=== PATIENT | female | born 1990 ===

== ENCOUNTER 2016-11-06 11:23 | Emergency (ER) | payer OTHER ==
[2016-11-06] MEDS ORDERED: Sodium Chloride 0.9% 1,000 ML IV ONE (11:34)
[2016-11-06] MEDS ORDERED: Iohexol 240 (50 ml) PO ONE (11:58)
[2016-11-06 12:00] LABS: BASO # 0.1 K/uL (0.0-0.2); BASO % 1.1 % (0.0-2.0); EOS # 0.2 K/uL (0.0-0.7); EOS % 3.3 % (0.0-4.0); HEMOGLOBIN 13.5 g/dL (11.0-16.0); LYMPH # 1.9 K/uL (1.0-4.3); LYMPH % 31.1 % (20.0-40.0); MEAN CELL VOLUME 90.6 fL (81.0-99.0); MEAN CORPUSCULAR HEMOGLOBIN 29.9 pg (27.0-31.0); MEAN PLATELET VOLUME 10.8 fL (7.2-11.7); MONO # 0.5 K/uL (0.0-0.8); MONO % 8.4 % (0.0-10.0); NEUT # 3.5 K/uL (1.8-7.0); NEUT % 56.1 % (50.0-75.0); NRBC % 0.1 % (0.0-2.0); RBC 4.5 Mil/uL (3.80-5.20); RED CELL DISTRIBUTION WIDTH 13.2 % (11.5-14.5); WHITE BLOOD COUNT 6.2 K/uL (4.8-10.8)
[2016-11-06 12:07] LABS: ALBUMIN 4.5 g/dL (3.5-5.0)
[2016-11-06] MEDS ORDERED: Iohexol 240 (50 ml) ONE (12:08)
[2016-11-06 12:10] LABS: ALB/GLOB RATIO 1.5 (1.0-2.1); ALT/SGPT 22 U/L (9-52); AST/SGOT 26 U/L (14-36); BLOOD UREA NITROGEN 23 mg/dL (7-17); GFR AFRICAN-AMERICAN > 60; GFR NON-AFRICAN AMERICAN > 60; HCG,QUALITATIVE URINE NEGATIVE (NEGATIVE)
[2016-11-06 12:11] LABS: CALCIUM 9.2 mg/dl (8.6-10.4); LIPASE 31 U/L (23-300)
--- NOTE | 2016-11-06 12:14 | C.PDOC ---
History Of Present Illness 26 yr old female presents to the ER with complaints of left sided abdominal pain on and off for the past 3 years. Patient states she was seen by her GYN6 months ago, had a transvaginal ultrasound and was negative for pathology. Patient states she is constipated. Denies fever, nausea, vomiting, blood in stool, dysuria, hematuria or back pain. Time Seen by Provider: 11/06/16 11:33 Chief Complaint (Nursing): Abdominal Pain History Per: Patient History/Exam Limitations: no limitations Onset/Duration Of Symptoms: Intermittent Episodes (3 years ) Current Symptoms Are (Timing): Still Present Location Of Pain/Discomfort: LUQ, LLQ Radiation Of Pain To:: None Past Medical History Reviewed: Historical Data, Nursing Documentation, Vital Signs Vital Signs: Last Vital Signs Temp 98.5 F 11/06/16 14:46 Pulse 61 11/06/16 14:46 Resp 18 11/06/16 14:46 BP 109/68 11/06/16 14:46 Pulse Ox 99 11/06/16 14:46 - Medical History PMH: Asthma - [facility] Procedures REMOVAL FB FROM HAND (09/18/13) Family History: States: No Known Family Hx - Social History Hx Tobacco Use: Yes Hx Alcohol Use: No Hx Substance Use: No - Immunization History Hx Tetanus Toxoid Vaccination: No Hx Influenza Vaccination: Yes Hx Pneumococcal Vaccination: No Review Of Systems Except As Marked, All Systems Reviewed And Found Negative. Constitutional: Negative for: Fever Gastrointestinal: Positive for: Abdominal Pain (Left sided ), Constipation. Negative for: Nausea, Vomiting Genitourinary: Negative for: Dysuria, Hematuria Musculoskeletal: Negative for: Back Pain Physical Exam - Physical Exam Appears: Non-toxic, No Acute Distress Skin: Warm, Dry, No Rash Head: Atraumatic, Normacephalic Oral Mucosa: Moist Chest: Symmetrical, No Tenderness Cardiovascular: Rhythm Regular, No Murmur Respiratory: Normal Breath Sounds, No Rales, No Rhonchi, No Stridor, No Wheezing Gastrointestinal/Abdominal: Bowel Sounds (Hyperactive ), Soft, Tenderness (Mild left abdominal tendenress. ), No Guarding, No Rebound Back: Normal Inspection, No CVA Tenderness Extremity: Normal ROM, No Swelling Neurological/Psych: Oriented x3, Normal Speech, Normal Motor ED Course And Treatment - Laboratory Results Result Diagrams: 11/06/16 11:54 11/06/16 11:54 O2 Sat by Pulse Oximetry: 100 (RA ) Pulse Ox Interpretation: Normal - CT Scan/US CT - Abdomen & Pelvis Other Rad Studies (CT/US): Read By Radiologist, Radiology Report Reviewed CT/US Interpretation: PROCEDURE: CT Abdomen and Pelvis with contrast. HISTORY : left-mid abdominal pain. COMPARISON: None. TECHNIQUE: Multiple contiguous axial images were performed through the abdomen and pelvis with the use of intravenous contrast. Subsequently, sagittal and coronal reformatted images were obtained. Radiation dose: Total exam DLP = 250 mGy-cm. This CT exam was performed using one or more of the following dose reduction techniques : Automated exposure control, adjustment of the mA and/or kV according to patient size, and/or use of iterative reconstruction technique. FINDINGS: LOWER THORAX: Unremarkable. LIVER: Mild fatty infiltration of the liver. Suggestion of some focal fatty sparing adjacent to the ligamentum teres medial right hepatic lobe on series 3, image 45. GALLBLADDER AND BILE DUCTS: Unremarkable. PANCREAS: Unremarkable. No gross lesion or ductal dilatation. SPLEEN: Unremarkable. ADRENALS: Unremarkable. No mass. KIDNEYS AND URETERS: Moderate left hydroureteronephrosis with an obstructing 9 millimeter calculus in the proximal left ureter. Additional hydroureter throughout the course of the left ureter more distally. VASCULATURE: Unremarkable. No aortic aneurysm. BOWEL: Mild reactive thickening of the sigmoid colon. Adjacent free fluid in the pelvis. Underdistention and or mild thickening of the mid descending colon. Fecal retention in the colon. APPENDIX: Contrast filled. Minimal prominence at the level of the mid appendix, nonspecific. PERITONEUM: Unremarkable. No free fluid. No free air. LYMPH NODES: Unremarkable. No enlarged lymph nodes. BLADDER: Unremarkable. REPRODUCTIVE: Heterogeneous uterus and bilateral adnexa. Prominent probable ovarian tissue in the midline pelvis measuring 3.8 centimeters. Additional probable ovarian tissue seen more laterally to the left measuring 3.8 centimeters with enhancing cyst internally measuring 1.8 centimeters. Small amount of free fluid in the pelvic cul-de-sac. BONES: Small bone island in the left proximal femur. Degenerative changes in the spine with minimal retrolisthesis of L5 on S1. OTHER FINDINGS: None. IMPRESSION: Moderate left hydroureteronephrosis with an obstructing 9 millimeter calculus in the proximal left ureter. Additional hydroureter throughout the course of the left ureter more distally. Additional findings as above. Medical Decision Making Medical Decision Making: PLAN: * CT - Abdomen & Pelvis * CBC * MP * HCG * Urinalysis * Toradol IVP * Sodium Chloride IV Disposition - Disposition Referrals: Nicole Chnug MD [Staff Provider] - Disposition: HOME/ ROUTINE Disposition Time: 15:15 Condition: IMPROVED Additional Instructions: Thank you for letting us take care of you today. Your provider was Dr. Zacarias. You were treated for a kidney stone. The emergency medical care you received today was directed at your acute symptoms. If you were prescribed any medication, please fill it and take as directed. It may take several days for your symptoms to resolve. Return to the Emergency Department if your symptoms worsen, do not improve, or if you have any other problems. Please contact your doctor or call one of the physicians/clinics you have been referred to that are listed on the Patient Visit Information form that is included in your discharge packet. Bring any paperwork you were given at discharge with you along with any medications you are taking to your follow up visit. Our treatment cannot replace ongoing medical care by a primary care provider (PCP) outside of the emergency department. Thank you for allowing the [facility] team to be part of your care today. Follow up with Dr. Mays in 2 days for further treatment of your kidney stone. Prescriptions: Ibuprofen [Motrin] 600 mg PO Q6 PRN #20 tab PRN Reason: Pain, Moderate (4-7) Instructions: Kidney Stones (ED) Forms: [employer] (Setswana), Work Excuse - Clinical Impression Clinical Impression: Nephrolithiasis - Scribe Statement The provider has reviewed the documentation as recorded by the Jordanibe Teresa Herman Provider Attestation: All medical record entries made by the Jordanibe were at my direction and personally dictated by me. I have reviewed the chart and agree that the record accurately reflects my personal performance of the history, physical exam, medical decision making, and the department course for this patient. I have also personally directed, reviewed, and agree with the discharge instructions and disposition.
[2016-11-06 12:18] LABS: SQUAMOUS EPITHIAL 6 /hpf (0-5); URINE BILIRUBIN NEGATIVE (NEGATIVE); URINE BLOOD NEGATIVE (NEGATIVE); URINE CLARITY Clear (Clear); URINE COLOR Yellow (YELLOW); URINE GLUCOSE (UA) NORMAL (Normal); URINE LEUKOCYTE ESTERASE TRACE Leu/uL (Negative); URINE NITRATE NEGATIVE (NEGATIVE); URINE PROTEIN NEGATIVE (NEGATIVE); URINE UROBILINOGEN NORMAL mg/dL (0.2-1.0)
[2016-11-06] MEDS ORDERED: Iodixanol 320 MG/ML 100 ML BOTTLE IV ONE (13:32)
--- NOTE | 2016-11-06 14:26 | CT ---
PROCEDURE: CT Abdomen and Pelvis with contrast HISTORY: left-mid abdominal pain COMPARISON: None. TECHNIQUE: Multiple contiguous axial images were performed through the abdomen and pelvis with the use of intravenous contrast. Subsequently, sagittal and coronal reformatted images were obtained. Radiation dose: Total exam DLP = 250 mGy-cm. This CT exam was performed using one or more of the following dose reduction techniques: Automated exposure control, adjustment of the mA and/or kV according to patient size, and/or use of iterative reconstruction technique. FINDINGS: LOWER THORAX: Unremarkable. LIVER: Mild fatty infiltration of the liver. Suggestion of some focal fatty sparing adjacent to the ligamentum teres medial right hepatic lobe on series 3, image 45. GALLBLADDER AND BILE DUCTS: Unremarkable. PANCREAS: Unremarkable. No gross lesion or ductal dilatation. SPLEEN: Unremarkable. ADRENALS: Unremarkable. No mass. KIDNEYS AND URETERS: Moderate left hydroureteronephrosis with an obstructing 9 millimeter calculus in the proximal left ureter. Additional hydroureter throughout the course of the left ureter more distally. VASCULATURE: Unremarkable. No aortic aneurysm. BOWEL: Mild reactive thickening of the sigmoid colon. Adjacent free fluid in the pelvis. Underdistention and or mild thickening of the mid descending colon. Fecal retention in the colon. APPENDIX: Contrast filled. Minimal prominence at the level of the mid appendix, nonspecific. PERITONEUM: Unremarkable. No free fluid. No free air. LYMPH NODES: Unremarkable. No enlarged lymph nodes. BLADDER: Unremarkable. REPRODUCTIVE: Heterogeneous uterus and bilateral adnexa. Prominent probable ovarian tissue in the midline pelvis measuring 3.8 centimeters. Additional probable ovarian tissue seen more laterally to the left measuring 3.8 centimeters with enhancing cyst internally measuring 1.8 centimeters. Small amount of free fluid in the pelvic cul-de-sac. BONES: Small bone island in the left proximal femur. Degenerative changes in the spine with minimal retrolisthesis of L5 on S1. OTHER FINDINGS: None. IMPRESSION: Moderate left hydroureteronephrosis with an obstructing 9 millimeter calculus in the proximal left ureter. Additional hydroureter throughout the course of the left ureter more distally. Additional findings as above.
[2016-11-06 14:46] VITALS: BP 109/68; PULSE 61; RESP 18; TEMP 98.5
[2016-11-06 18:31] VITALS: O2SAT 100
== END 2016-11-06 16:11 | disposition home or self-care (01) ==
LOC: C.ER 11:23
DX: N20.0 Calculus of kidney (principal)
CPT/HCPCS: 74177; 80053; 81001; 83690; 84703; 85025; 87086; 96374; 99285; J1885; J7040; Q9966; Q9967

== ENCOUNTER 2016-11-08 08:30 | Day surgery (SDC) | payer OTHER ==
[2016-11-08 09:28] LABS: HCG,QUALITATIVE URINE NEGATIVE (NEGATIVE)
[2016-11-08] MEDS ORDERED: Lidocaine 2% Jelly (Uro-Jet) ONE ×2 (09:34→10:16)
[2016-11-08] MEDS ORDERED: Iohexol 240 (50 ml) ONE (09:34)
--- NOTE | 2016-11-08 09:35 | C.PDOC ---
History Of Present Illness 26 yr old female with history of kidney stone on the left, presents to the ER, referred by Dr. Nicole Medina for renal colic and to OR for stent placement. Patient reports the pain is mainly on the left side and is 8/10. Denies fever, chest pain, SOB, nausea, vomiting, dysuria, headache, weakness or numbness. Time Seen by Provider: 11/08/16 08:59 Chief Complaint (Nursing): Female Genitourinary History Per: Patient History/Exam Limitations: no limitations Onset/Duration Of Symptoms: Days Current Symptoms Are (Timing): Still Present Pain Scale Rating Of: 8 Past Medical History Reviewed: Historical Data, Nursing Documentation, Vital Signs Vital Signs: Last Vital Signs Temp 98.2 F 11/08/16 08:40 Pulse 66 11/08/16 08:40 Resp 20 11/08/16 08:40 BP 117/70 11/08/16 08:40 Pulse Ox 99 11/08/16 09:35 - Medical History PMH: Asthma, Kidney Stones, Chronic Kidney Disease - [facility] Procedures REMOVAL FB FROM HAND (09/18/13) Family History: States: No Known Family Hx - Social History Hx Tobacco Use: Yes Hx Alcohol Use: Yes Hx Substance Use: No - Immunization History Hx Tetanus Toxoid Vaccination: No Hx Influenza Vaccination: Yes Hx Pneumococcal Vaccination: No Review Of Systems Except As Marked, All Systems Reviewed And Found Negative. Constitutional: Negative for: Fever Cardiovascular: Negative for: Chest Pain Respiratory: Negative for: Shortness of Breath Gastrointestinal: Positive for: Abdominal Pain (Left lower ). Negative for: Nausea, Vomiting Genitourinary: Negative for: Dysuria Neurological: Negative for: Weakness, Numbness, Headache Physical Exam - Physical Exam Appears: Non-toxic, No Acute Distress Skin: Warm, Dry, No Rash Head: Atraumatic, Normacephalic Chest: Symmetrical, No Tenderness Cardiovascular: Rhythm Regular, No Murmur Respiratory: Normal Breath Sounds, No Rales, No Rhonchi, No Stridor, No Wheezing Gastrointestinal/Abdominal: Soft, Tenderness (Mild LLQ tenderness), No Guarding , No Rebound Back: CVA Tenderness (Mild left CVA tenderness) Extremity: Normal ROM, No Swelling Neurological/Psych: Oriented x3, Normal Speech, Normal Motor, Normal Sensation ED Course And Treatment O2 Sat by Pulse Oximetry: 99 (RA) Pulse Ox Interpretation: Normal Medical Decision Making Medical Decision Making: PLAN: * HCG * Urinalysis Disposition Doctor Will See Patient In The: Hospital - Disposition Disposition: HOSPITALIZED Disposition Time: 09:34 Forms: Backpack (Italian) - Clinical Impression Clinical Impression: Renal colic on right side - Scribe Statement The provider has reviewed the documentation as recorded by the Jordanibe Teresa Herman Provider Attestation: All medical record entries made by the Jordanibe were at my direction and personally dictated by me. I have reviewed the chart and agree that the record accurately reflects my personal performance of the history, physical exam, medical decision making, and the department course for this patient. I have also personally directed, reviewed, and agree with the discharge instructions and disposition. Decision To Admit - Pt Status Changed To: Hospital Disposition Of: SDS- Endo,OR,Cath,IR - InPatient: Physician Admission Certification: I certify that this patient requires 2 or more midnights of care for the following reason:: patient needs intervention - . Bed Request Type: Same Day Surgery Admitting Physician: Nicole Chung Patient Diagnosis: Renal colic on right side
[2016-11-08 09:38] LABS: SQUAMOUS EPITHIAL 5 /hpf (0-5); URINE BILIRUBIN NEGATIVE (NEGATIVE); URINE BLOOD 1+ (NEGATIVE); URINE CLARITY Clear (Clear); URINE COLOR Yellow (YELLOW); URINE GLUCOSE (UA) NORMAL (Normal); URINE LEUKOCYTE ESTERASE TRACE Leu/uL (Negative); URINE NITRATE NEGATIVE (NEGATIVE); URINE PROTEIN NEGATIVE (NEGATIVE); URINE UROBILINOGEN NORMAL mg/dL (0.2-1.0)
[2016-11-08] MEDS ORDERED: Lactated Ringer's 500 ML IV ONE ×2 (09:38)
[2016-11-08] MEDS: cefTRIAXone IV 1 gm in Dextros 50 ML IVPB ONE ×2 (09:39→09:55)
[2016-11-08] MEDS ORDERED: Midazolam 2 MG/2 ML VIAL ONE (09:56)
[2016-11-08] MEDS ORDERED: Propofol 10 mg/ml Inj (20 ML) ONE (09:57)
[2016-11-08] MEDS ORDERED: Lidocaine Hydrochloride 5 ML INJ ONE (10:01)
[2016-11-08] MEDS: HYDROmorphone 0.5 mg/0.5 ml ISec IVP PRN ×3 (10:44→11:45)
--- NOTE | 2016-11-08 10:45 | PCM.SURG1 ---
Surgeon's Initial Post Op Note - Surgeon's Notes Surgeon: heriberto denise Chief Technology Officer: none Type of Anesthesia: IV Sedation Pre-Operative Diagnosis: renal colic, L. L ureteral calculus Operative Findings: same. L hydronephrosis Post-Operative Diagnosis: same Operation Performed: cystoscopy, L rtg pyelogram. L ureteral stone manipulation. insertion of L ureteral stent. EUA Specimen/Specimens Removed: urine Estimated Blood Loss: EBL {In ML}: 0 Blood Products Given: N/A Post-Op Condition: Good Date of Surgery/Procedure: 11/08/16 Time of Surgery/Procedure: 10:35
[2016-11-08] MEDS ORDERED: Lactated Ringer's 1,000 ML IV ONE (11:50)
--- NOTE | 2016-11-08 12:11 | RAD ---
HISTORY: LEFT HYDRONEPHROSIS/LT URETERAL STONE COMPARISON: 11/06/2016. CT abdomen and pelvis. FINDINGS: BOWEL: Normal. No obstruction. No free air. Oral contrast from recent CT scan. BONES: Normal. OTHER FINDINGS: Two calculi identified on recent CT scan again noted in unchanged compared to prior studies. IMPRESSION: Confirmation of mid left ureteral calculi. No additional acute/ significant findings.
--- NOTE | 2016-11-08 12:18 | RAD ---
PROCEDURE: Intraoperative Fluoroscopy. HISTORY: LEFT HYDRONEPHROSIS FINDINGS: Fluoroscopic assistance was provided for left retrograde and stent insertion.. Please refer to the operative report from during the procedure: 42.7 seconds Submitted images from the current procedure: 9.0
[2016-11-08 13:16] VITALS: BP 103/59; PULSE 65; RESP 18; TEMP 97.5; O2SAT 98
--- NOTE | 2016-11-09 16:19 | OP ---
PROCEDURE DATE: 11/08/2016 PREOPERATIVE DIAGNOSES: Left renal colic. Urolithiasis. Left upper ureteral stone. POSTOPERATIVE DIAGNOSIS: Left renal colic. Urolithiasis. Left upper ureteral stone. Left hydronephrosis. PROCEDURE: Cystoscopy. Left retrograde pyelogram. Left ureteral stone manipulation. Insertion of left ureteral stent. Exam under anesthesia. OPERATING SURGEON: Nicole Chung MD PROCEDURE FOLLOWS: The patient received heavy operative antibiotics. The patient was placed in lithotomy position. The genitalia prepped and draped sterilely. Anesthesia was applied by the anesthesiologist. A 22-Setswana cystoscope sheath was introduced with obturator, urethra and bladder were inspected with 30-degree and subsequently with 70-degree lens. FINDINGS: There was no bladder tumor. There was no bladder stone. The bladder wall was small and smooth. The ureteral orifices were normal in position and shape. The sales technician fluoroscopy of the abdomen revealed residual GI contrast within the colon. There was noted to be an approximately 6 x 9 mm stone in the area of the upper ureter approximately L3 level. An open end catheter was inserted to the ureter. Iodinated contrast was instilled. The film was identified as it was surrounded by contrast. Injection of contrast and lidocaine jelly solution to the open end catheter were placed below the stone and was performed. The attempt was made to dislodged the stone. It was noted to be marked hydronephrosis with dilation of the ureter and pelvis ending calyces above the stone. It was unclear, at the time of the procedure if the stone was actually dislodged as the stone was no longer well seen. A 0.035-inch guidewire was inserted through the open end catheter into the kidney. A 6-Setswana multi-length stent was inserted over with the guidewire. Proper stent position was confirmed with fluoroscopy and endoscopy. The guidewire was removed. The stent was left in place. The bladder was inspected and confirmed the above findings. The bladder was then drained, the cystoscope sheaths were removed. Exam under anesthesia was performed. There was no abdominopelvic mass fixation or induration. The patient tolerated the procedure without complications. Nicole Chung MD cc: Nicole Chung MD
== END 2016-11-08 13:05 | disposition home or self-care (01) ==
LOC: C.SDS 08:30 → C.ER 08:30 → C.SDS 09:42
PROVIDERS: ATTEND Urology
DX: N13.2 Hydronephrosis with renal and ureteral calculous obstruction (principal)
CPT/HCPCS: 50385; 52330; 74000; 76000; 81001; 84703; 87086; 99285; C1769; C2617; J0696; J1170; J7120

== ENCOUNTER 2016-11-11 10:09 | Observation (INO) | payer OTHER ==
[2016-11-11] MEDS ORDERED: Sodium Chloride 0.9% 1,000 ML IV STA (10:25)
[2016-11-11] MEDS ORDERED: cefTRIAXone IV 1 gm in Dextros 50 ML IVPB ONE (10:41)
[2016-11-11] MEDS ORDERED: Sodium Chloride 0.9% 1,000 ML ONE ×2 (10:42→13:13)
[2016-11-11 10:43] LABS: BASO % 0.4 % (0.0-2.0); EOS # 0.1 K/uL (0.0-0.7); EOS % 1.2 % (0.0-4.0); HEMATOCRIT 39.2 % (34.0-47.0); LYMPH % 10.3 % (20.0-40.0); MEAN CELL VOLUME 91.1 fL (81.0-99.0); MEAN CORPUSCULAR HEMOGLOBIN 30.3 pg (27.0-31.0); MEAN CORPUSCULAR HGB CONC 33.2 g/dL (33.0-37.0); MEAN PLATELET VOLUME 10.7 fL (7.2-11.7); MONO % 9.7 % (0.0-10.0); RED CELL DISTRIBUTION WIDTH 13.1 % (11.5-14.5)
[2016-11-11 10:56] LABS: ALB/GLOB RATIO 1.3 (1.0-2.1); ALKALINE PHOSPHATASE 60 U/L (38-126); ALT/SGPT 23 U/L (9-52); AST/SGOT 22 U/L (14-36); BILIRUBIN,TOTAL 0.8 mg/dL (0.2-1.3); BLOOD UREA NITROGEN 9 mg/dL (7-17); CALCIUM 9.4 mg/dl (8.6-10.4); CARBON DIOXIDE 29 mmol/L (22-30); CHLORIDE 96 mmol/L (98-107); GFR AFRICAN-AMERICAN > 60; GLUCOSE,RANDOM 93 mg/dL (65-105); POTASSIUM 3.8 mmol/L (3.6-5.2); SODIUM 137 mmol/L (132-148); TOTAL PROTEIN 7.3 g/dL (6.3-8.3)
[2016-11-11 11:02] LABS: RBC URINE 916 /hpf (0-3); URINE BACTERIA RARE (<OCC); URINE BILIRUBIN NEGATIVE (NEGATIVE); URINE BLOOD 3+ (NEGATIVE); URINE COLOR Amber (YELLOW); URINE GLUCOSE (UA) NORMAL (Normal); URINE KETONE 2+ mg/dL (NEGATIVE); URINE LEUKOCYTE ESTERASE 3+ Leu/uL (Negative); URINE PROTEIN 2+ mg/dL (NEGATIVE); URINE UROBILINOGEN NORMAL mg/dL (0.2-1.0); WBC URINE 588 /hpf (0-5)
--- NOTE | 2016-11-11 11:40 | C.PDOC ---
History Of Present Illness Patient is a 26 year old female, with PMHx of kidney stones, is sent to the ED by Dr. Chung for admission. Patient states she has left kidney stone, and had a stent placed by Dr. Chung on 11/08/16. Patient complaints of persistent left flank pain associated with nausea and vomiting for the past few days. Pt also states that she developed fever last night. As per note, Dr. Chung requests to start patient with Rocephin, and to admit patient to hospitalist service with his consult. Otherwise, patient denies any abdominal pain, dysuria , hematuria, urinary frequency, or urinary retention. No other complaints at this time. Chief Complaint (Nursing): Fever History Per: Patient History/Exam Limitations: no limitations Onset/Duration Of Symptoms: Days Current Symptoms Are (Timing): Still Present Sick Contacts (Context): None Associated Symptoms: Fever, Nausea, Vomiting. denies: Diarrhea Recent travel outside of the [place]: No Additional History Per: Patient Past Medical History Reviewed: Historical Data, Nursing Documentation, Vital Signs Vital Signs: Last Vital Signs Temp 98.3 F 11/11/16 10:14 Pulse 77 11/11/16 10:14 Resp 16 11/11/16 10:14 BP 116/80 11/11/16 10:14 Pulse Ox 100 11/11/16 11:57 - Medical History PMH: Asthma, Kidney Stones, Chronic Kidney Disease - [facility] Procedures REMOVAL FB FROM HAND (09/18/13) Family History: States: Unknown Family Hx - Social History Hx Tobacco Use: Yes Hx Alcohol Use: Yes Hx Substance Use: No - Immunization History Hx Tetanus Toxoid Vaccination: No Hx Influenza Vaccination: Yes Hx Pneumococcal Vaccination: No Review Of Systems Except As Marked, All Systems Reviewed And Found Negative. Constitutional: Positive for: Fever Gastrointestinal: Positive for: Nausea, Vomiting. Negative for: Abdominal Pain , Diarrhea, Constipation Genitourinary: Negative for: Dysuria, Frequency, Incontinence, Hematuria, Vaginal Discharge, Vaginal Bleeding, Pelvic Pain Musculoskeletal: Positive for: Back Pain (left flank) Neurological: Negative for: Weakness, Numbness Physical Exam - Physical Exam Appears: Non-toxic, No Acute Distress Skin: Normal Color, Warm, Dry Head: Atraumatic, Normacephalic Eye(s): bilateral: Normal Inspection, EOMI Oral Mucosa: Moist Neck: Supple Cardiovascular: Rhythm Regular, No Murmur Respiratory: Normal Breath Sounds, No Rales, No Rhonchi, No Wheezing Gastrointestinal/Abdominal: Soft, No Tenderness Back: CVA Tenderness (left), No Vertebral Tenderness Neurological/Psych: Oriented x3, Normal Speech, Normal Cognition ED Course And Treatment - Laboratory Results Result Diagrams: 11/11/16 10:37 11/11/16 10:37 O2 Sat by Pulse Oximetry: 100 (RA) Pulse Ox Interpretation: Normal Progress Note: Blood work, urinalysis, abdomen x-ray ordered and reviewed. Patient was treated with Rocephin, and IV fluids. On re-eval, pt reports feeling better, with improvement of pain. Case discussed with contract clerk automobile hospitalist who accepted patient for admission. Disposition - Disposition Disposition: HOSPITALIZED Disposition Time: 11:36 Condition: FAIR - Clinical Impression Clinical Impression: Ureteral stone, UTI (urinary tract infection) - PA / WATER RESOURCE PROJECT MANAGER / Resident Statement MD/DO has reviewed & agrees with the documentation as recorded. - Scribe Statement The provider has reviewed the documentation as recorded by the Scribe Catarina Kwong All medical record entries made by the Scribe were at my direction and personally dictated by me. I have reviewed the chart and agree that the record accurately reflects my personal performance of the history, physical exam, medical decision making, and the department course for this patient. I have also personally directed, reviewed, and agree with the discharge instructions and disposition. Decision To Admit - Pt Status Changed To: Hospital Disposition Of: Inpatient - Admit Certification Admit to Inpatient:: After my assessment, the patient will require hospitalization for at least two midnights. This is because of the severity of symptoms shown, intensity of services needed, and/or the medical risk in this patient being treated as an outpatient. - InPatient: Physician Admission Certification:: Pt will need IV antibiotics for more than 2 days - . Bed Request Type: Regular Admitting Physician: Raji Kwong Patient Diagnosis: Ureteral stone, UTI (urinary tract infection)
[2016-11-11] MEDS ORDERED: HYDROmorphone 1 mg/ml ISec ONE (11:56)
[2016-11-11] MEDS ORDERED: HYDROmorphone 1 mg/ml ISec IVP STA (12:08)
[2016-11-11] MEDS ORDERED: Pantoprazole 40 mg EC Tab PO ONE (13:13)
[2016-11-11] MEDS: Pantoprazole 40 mg EC Tab PO SCH (13:20)
[2016-11-11] MEDS: Sodium Chloride 0.9% 1,000 ML IV SCH ×2 (13:20→22:38)
--- NOTE | 2016-11-11 13:31 | RAD ---
HISTORY: Left uretheral stent COMPARISON: 11/08/2016 FINDINGS: BOWEL: Residual contrast in the transverse and descending colon from recent CT abdomen and pelvis 11/06/2016 noted. Extensive right colonic stool retention -similar-appearing BONES: (T12 with rudimentary ribs and 4 non rib-bearing lumbar vertebrae noted) OTHER FINDINGS: The prior CT depicted calculus within the left ureter at the L2-3 level measuring 1.4 cm in cephalo caudal extent on 11/08/2016 KUB is no longer seen. A left ureteral stent is placed distal core all projects over the expected bladder the proximal core all somewhat low in position at the L2-3 level (T12 with rudimentary ribs and 4 non rib-bearing lumbar vertebrae noted) IMPRESSION: Interval left ureteral stent placement - the prior large calculus is no longer seen at this level or along the left ureteral stent course or in the bladder. Its passage or dissolution is inferred. The proximal coil of the left ureteral stent appears low normal -correlate clinically Right colonic stool retention. Residual residual CT oral contrast
--- NOTE | 2016-11-11 13:50 | CP.PCM.HP ---
Addendum entered and electronically signed by Julissa Yanez DO 11/11/16 15:48: ABD US - no signs of obstruction but patient with bad constipation. Original Note: <Julissa Yanez - Last Filed: 11/11/16 15:46> History of Present Illness - History of Present Illness History of Present Illness: CC - "Fever, vomiting and no bowel movement since last Tuesday" HPI - 26 year old female with a past medical history of renal calculi presents today with fever for one day. On Tuesday she had a cystoscopy, pyelogram and L urethral stent placed due to a 9mm renal stone in the left side done by Dr. Lois Chung. The following day she had a shockwave lithrotripsy. Since then she states she has has nausea and had vomited her food once or twice. She states she can't keep food down but is able to drink some water and juice. She states that last night she had a fever of 100.3 measured at home and called Dr. Chung who instructed her to come to the ED for evaluation. She admits to some dizziness which comes and goes, and also states she has not had a BM since last Tuesday. She admits to RLU abdominal pain and also lower back tenderness on the Left side since the procedure. She has been taking percocet since Tuesday as needed for pain and state she gets double vision when she takes this. She admits to dysuria and reports seth granules in her urine. She denied cheat pain , shortness of breathing, diarrhea, numbness or tingling in the extremities. She has no other complains. PMHx - renal calculi Meds - Flomax, Percocet, Levaquin 500 mg PO daily x 7 days, oxybutinin (given post procedure) Allergies - NKDA Surg - L ureter stent placement (11/08) and lithrotripsy (11/09) Famhx - denies Hx of cancer, heart disease, renal stones, grandfather of stoke when he was in his 80s Social - minimal social alcohol use, smokes 5 cigarettes daily for about 10 years, denies drug use. lives with her 3 children and at home. works in housekeeping at [employer] Urologist - Dr. Nicole Chung PMD - Dr. Daniels ([facility]) - needs new PMD Present on Admission - Present on Admission Any Indicators Present on Admission: No Review of Systems - Constitutional Constitutional: Fever. absent: Chills - EENT Eyes: Diplopia (when she take percocet). absent: Blurred Vision, Change in Vision Nose/Mouth/Throat: absent: Nasal Congestion, Nasal Discharge - Cardiovascular Cardiovascular: absent: Chest Pain, Chest Pain at Rest, Diaphoresis, Palpitations, Syncope - Respiratory Respiratory: absent: Cough, Dyspnea, Dyspnea on Exertion - Gastrointestinal Gastrointestinal: Abdominal Pain, Constipation, Nausea, Vomiting. absent: Bloating, Cramping, Diarrhea - Genitourinary Genitourinary: Change in Urinary Stream, Difficulty Urinating, Urinary Frequency. absent: Hematuria - Neurological Neurological: absent: Dizziness, Numbness, Tingling, Weakness Past Patient History - Infectious Disease Hx of Infectious Diseases: None - Past Medical History & Family History Past Medical History?: Yes - Past Social History Smoking Status: Light Smoker < 10 Cigarettes Daily - CARDIAC Hx Cardiac Disorders: No - PULMONARY Hx Asthma: Yes - NEUROLOGICAL Hx Neurological Disorder: No - HEENT Hx HEENT Problems: No - RENAL Hx Chronic Kidney Disease: Yes Hx Kidney Stones: Yes - ENDOCRINE/METABOLIC Hx Endocrine Disorders: No - HEMATOLOGICAL/ONCOLOGICAL Hx Blood Disorders: No - INTEGUMENTARY Hx Dermatological Problems: No - MUSCULOSKELETAL/RHEUMATOLOGICAL Hx Musculoskeletal Disorders: No Hx Falls: No - GASTROINTESTINAL Hx Gastrointestinal Disorders: No - GENITOURINARY/GYNECOLOGICAL Hx Genitourinary Disorders: No - PSYCHIATRIC Hx Substance Use: No - SURGICAL HISTORY Hx Surgeries: Yes Other/Comment: I&D. CYSTO WITH STENT PLACEMENT - ANESTHESIA Hx Anesthesia: Yes Hx Anesthesia Reactions: No Hx Malignant Hyperthermia: No Meds Allergies/Adverse Reactions: Allergies Allergy/AdvReac Type Severity Reaction Status Date / Time No Known Allergies Allergy Verified 11/11/16 10:17 Physical Exam - Constitutional Appears: Non-toxic, No Acute Distress - Head Exam Head Exam: ATRAUMATIC, NORMAL INSPECTION - Eye Exam Eye Exam: EOMI, Normal appearance Pupil Exam: NORMAL ACCOMODATION - ENT Exam ENT Exam: Mucous Membranes Dry - Respiratory Exam Respiratory Exam: Clear to Auscultation Bilateral, NORMAL BREATHING PATTERN. absent: Accessory Muscle Use, Rales, Rhonchi, Wheezes, Respiratory Distress - Cardiovascular Exam Cardiovascular Exam: REGULAR RHYTHM, +S1, +S2 - GI/Abdominal Exam GI & Abdominal Exam: Normal Bowel Sounds, Soft, Tenderness. absent: Distended, Firm, Guarding Additional comments: tender LLQ - Extremities Exam Extremities exam: Positive for: normal inspection. Negative for: calf tenderness, pedal edema - Back Exam Back exam: CVA tenderness (L), NORMAL INSPECTION. absent: CVA tenderness (R), paraspinal tenderness - Neurological Exam Neurological exam: Alert, CN II-XII Intact, Normal Gait, Oriented x3, Reflexes Normal - Psychiatric Exam Psychiatric exam: Normal Affect, Normal Mood - Skin Skin Exam: Dry, Intact, Normal Color, Warm Results - Vital Signs Recent Vital Signs: Last Vital Signs Temp 98.3 F 11/11/16 10:14 Pulse 77 11/11/16 10:14 Resp 16 11/11/16 10:14 BP 116/80 11/11/16 10:14 Pulse Ox 100 11/11/16 12:15 - Labs Result Diagrams: 11/11/16 10:37 11/11/16 10:37 Assessment & Plan - Assessment and Plan (Free Text) Assessment: 26 year old female with a past medical history of renal calculi s/p L ureteral stent placement (11/08) and lithrotripsy (11/09) presents with UTI and pyelonephritis with constipation: Plan: Left pyelonephritis secondary to UTI Ceftriaxone 1gram IV Q24 (started 11/11) NS at 100cc/hour f/u blood and urine cultures Toradol 15 mg IVP [id number] prn moderate pain Toradol 30mg IVP Q6 hours prn severe pain Zofran prn nausea/vomiting afebrile, no white count, +CVA tenderness on left side UA 2+ketones, 2+ protein, 3+ blood, 3+ LE, 588 WBC, 916 RBC f/u renal US BUN/Cr 9/1.1 f/u am labs Obstructing L 9mm renal calculi S/p stent and lithrotripsy Dr. Lois Chung consulted, help appreciated f/u renal US Constipation Colace 100mg PO TID hold narcotics do not add any bowel stimulants Prophylaxis SCDs Protonix 40mg PO Clear liquid diet advance as tolerated <Raji Kwong - Last Filed: 11/11/16 21:47> Results - Vital Signs Recent Vital Signs: Last Vital Signs Temp 98.4 F 11/11/16 15:50 Pulse 64 11/11/16 15:50 Resp 18 11/11/16 15:50 BP 107/73 11/11/16 15:50 Pulse Ox 99 11/11/16 15:50 - Labs Result Diagrams: 11/11/16 10:37 11/11/16 10:37 Attending/Attestation - Attestation I have personally seen and examined this patient.: Yes I have fully participated in the care of the patient.: Yes I have reviewed all pertinent clinical information: Yes Notes (Text): 11/11/16 21:45 Patient was seen and examined in the ER. History, Physical, Assessment and Plan were thoroughly gone over with the resident. Raji Kwong D.O.
--- NOTE | 2016-11-11 14:05 | US ---
PROCEDURE: Ultrasound of the Kidneys HISTORY: hx renal stone with hydro COMPARISON: CT abdomen and pelvis with contrast performed 11/06/16 TECHNIQUE: Sonogram of the kidneys. FINDINGS: RIGHT KIDNEY: Measures: 10.5 x 4.4 x 5.1 cm. No obstructing calculus or hydronephrosis identified. LEFT KIDNEY: Measures: 11.8 x 6.8 x 7.3 cm. Small to moderate hydronephrosis. Left ureteral stent. OTHER FINDINGS: Stent is noted within the decompressed urinary bladder. IMPRESSION: Small to moderate left-sided hydronephrosis. Left ureteral stent.
[2016-11-11] MEDS: Saccharomyces Boulardi 250 mg Cap PO SCH (17:55)
[2016-11-12] MEDS: Sodium Chloride 0.9% 1,000 ML IV SCH ×2 (05:09→09:45)
[2016-11-12 07:34] LABS: BASO % 0.5 % (0.0-2.0); EOS # 0.2 K/uL (0.0-0.7); EOS % 3.5 % (0.0-4.0); HEMATOCRIT 32.6 % (34.0-47.0); LYMPH # 1.5 K/uL (1.0-4.3); MEAN CELL VOLUME 90.1 fL (81.0-99.0); MEAN CORPUSCULAR HEMOGLOBIN 30.7 pg (27.0-31.0); MEAN PLATELET VOLUME 11.1 fL (7.2-11.7); MONO # 0.8 K/uL (0.0-0.8); MONO % 11.6 % (0.0-10.0); RED CELL DISTRIBUTION WIDTH 12.8 % (11.5-14.5); WHITE BLOOD COUNT 6.9 K/uL (4.8-10.8)
[2016-11-12 07:43] LABS: CHLORIDE 102 mmol/L (98-107); POTASSIUM 3.7 mmol/L (3.6-5.2); SODIUM 135 mmol/L (132-148)
[2016-11-12 07:45] LABS: GFR AFRICAN-AMERICAN > 60
[2016-11-12 07:46] LABS: BLOOD UREA NITROGEN 6 mg/dL (7-17); CARBON DIOXIDE 26 mmol/L (22-30); GLUCOSE,RANDOM 79 mg/dL (65-105)
[2016-11-12 07:47] LABS: CALCIUM 8.2 mg/dl (8.6-10.4); MAGNESIUM 1.6 mg/dL (1.6-2.3)
[2016-11-12] MEDS: Pantoprazole 40 mg EC Tab PO SCH (09:56)
[2016-11-12] MEDS: Saccharomyces Boulardi 250 mg Cap PO SCH ×2 (09:56→17:34)
[2016-11-12] MEDS ORDERED: Bisacodyl 5mg EC Tab PO ONE (11:38)
--- NOTE | 2016-11-12 13:13 | CP.PCM.PN ---
Subjective - Date & Time of Evaluation Date of Evaluation: 11/12/16 Time of Evaluation: 09:15 - Subjective Subjective: PGY-[address] Gerardo Kwong Patient seen and examined at bedside. Patient complains of constipation and bloating. Patient's last BM was last Tuesday (11/05). Patient denies subjective fever, chills, nausea, vomiting, chest pain, SOB, abdominal pain, dysuria. Objective - Vital Signs/Intake and Output Vital Signs (last 24 hours): Temp Pulse Resp BP Pulse Ox 98.1 F 61 20 107/70 100 11/12/16 08:10 11/12/16 08:10 11/12/16 08:10 11/12/16 08:10 11/12/16 08:10 Intake and Output: 11/12/16 11/12/16 06:59 18:59 Intake Total 1820 Balance 1820 - Medications Medications: Current Medications Docusate Sodium (Colace) 100 mg PO TID [facility] Last Admin: 11/12/16 09:56 Dose: 100 mg Ceftriaxone Sodium 1 gm/ (Sodium Chloride) 100 mls @ 100 mls/hr IVPB DAILY [facility] Last Admin: 11/12/16 09:56 Dose: 100 mls/hr Sodium Chloride (Sodium Chloride 0.9%) 1,000 mls @ 100 mls/hr IV .Q10H [facility] Last Admin: 11/12/16 05:09 Dose: 100 mls/hr Ketorolac Tromethamine (Toradol) 15 mg IVP Q6H PRN PRN Reason: Pain, moderate (4-7) Last Admin: 11/12/16 05:06 Dose: 15 mg Ketorolac Tromethamine (Toradol) 30 mg IVP Q6H PRN PRN Reason: Pain, severe (8-10) Ondansetron HCl (Zofran Inj) 4 mg IVP Q6H PRN PRN Reason: Nausea/Vomiting Pantoprazole Sodium (Protonix Ec Tab) 40 mg PO DAILY [facility] Last Admin: 11/12/16 09:56 Dose: 40 mg Saccharomyces Boulardii (Florastor) 250 mg PO BID [facility] Last Admin: 11/12/16 09:56 Dose: 250 mg - Labs Labs: 11/12/16 07:09 11/12/16 07:09 - Constitutional Appears: No Acute Distress - Head Exam Head Exam: ATRAUMATIC, NORMAL INSPECTION, NORMOCEPHALIC - Eye Exam Eye Exam: EOMI, PERRL - ENT Exam ENT Exam: Mucous Membranes Moist - Respiratory Exam Respiratory Exam: Clear to Ausculation Bilateral. absent: Rales, Rhonchi, Wheezes - Cardiovascular Exam Cardiovascular Exam: REGULAR RHYTHM, +S1, +S2 - GI/Abdominal Exam GI & Abdominal Exam: Soft, Normal Bowel Sounds. absent: Distended, Tenderness Additional comments: Suprapubic tenderness noted. - Extremities Exam Extremities Exam: absent: Pedal Edema, Tenderness - Neurological Exam Neurological Exam: Alert, Awake, Oriented x3 - Skin Skin Exam: Dry, Intact, Normal Color, Warm Assessment and Plan - Assessment and Plan (Free Text) Assessment: 26 year old female with a past medical history of renal calculi s/p L ureteral stent placement (11/08) and lithrotripsy (11/09) presents with UTI and pyelonephritis with constipation Plan: Left pyelonephritis secondary to UTI Ceftriaxone 1gram IV Q24 (started 11/11) NS at 100cc/hour f/u blood and urine cultures Toradol 15 mg IVP [id number] prn moderate pain Toradol 30mg IVP Q6 hours prn severe pain Zofran prn nausea/vomiting Afebrile, no white count UA 2+ketones, 2+ protein, 3+ blood, 3+ LE, 588 WBC, 916 RBC Obstructing L 9mm renal calculi S/p stent and lithrotripsy Dr. Lois Chung consulted, help appreciated f/u renal US Constipation Colace 100mg PO TID hold narcotics CT abd/pelvis (11/06/16) from prior visit: Mild reactive thickening of the sigmoid colon. Adjacent free fluid in the pelvis. Underdistention and or mild thickening of the mid descending colon. Fecal retention in the colon. Small amount of free fluid in the pelvic cul-de-sac. Patient given 1 time dose of dulcolax 30 mg PO daily which has allowed her to have first bowel movement since 11/05/16 Prophylaxis SCDs Protonix 40mg PO Clear liquid diet advance as tolerated Case discussed with Dr. Varghese Hernandez PGY1
--- NOTE | 2016-11-12 23:33 | CP.PCM.CON ---
History of Present Illness - History of Present Illness History of Present Illness: cc: abd pain, L flank pain, fever Hx of stones full note t/f Past Patient History - Infectious Disease Hx of Infectious Diseases: None - Past Medical History & Family History Past Medical History?: Yes - Past Social History Smoking Status: Never Smoked - CARDIAC Hx Cardiac Disorders: No - PULMONARY Hx Asthma: Yes - NEUROLOGICAL Hx Neurological Disorder: No - HEENT Hx HEENT Problems: No - RENAL Hx Chronic Kidney Disease: Yes Hx Kidney Stones: Yes - ENDOCRINE/METABOLIC Hx Endocrine Disorders: No - HEMATOLOGICAL/ONCOLOGICAL Hx Blood Disorders: No - INTEGUMENTARY Hx Dermatological Problems: No - MUSCULOSKELETAL/RHEUMATOLOGICAL Hx Musculoskeletal Disorders: No Hx Falls: No - GASTROINTESTINAL Hx Gastrointestinal Disorders: No - GENITOURINARY/GYNECOLOGICAL Hx Genitourinary Disorders: No - PSYCHIATRIC Hx Substance Use: No - SURGICAL HISTORY Hx Surgeries: Yes Other/Comment: I&D. CYSTO WITH STENT PLACEMENT - ANESTHESIA Hx Anesthesia: Yes Hx Anesthesia Reactions: No Hx Malignant Hyperthermia: No Has any member of the family had a problem w/ anesthesia?: No Meds Allergies/Adverse Reactions: Allergies Allergy/AdvReac Type Severity Reaction Status Date / Time No Known Allergies Allergy Verified 11/11/16 10:17 - Medications Medications: Current Medications Docusate Sodium (Colace) 100 mg PO TID [facility] Last Admin: 11/12/16 17:35 Dose: Not Given Ceftriaxone Sodium 1 gm/ (Sodium Chloride) 100 mls @ 100 mls/hr IVPB DAILY [facility] Last Admin: 11/12/16 09:56 Dose: 100 mls/hr Sodium Chloride (Sodium Chloride 0.9%) 1,000 mls @ 100 mls/hr IV .Q10H [facility] Last Admin: 11/12/16 09:45 Dose: Not Given Ketorolac Tromethamine (Toradol) 15 mg IVP Q6H PRN PRN Reason: Pain, moderate (4-7) Last Admin: 11/12/16 05:06 Dose: 15 mg Ketorolac Tromethamine (Toradol) 30 mg IVP Q6H PRN PRN Reason: Pain, severe (8-10) Ondansetron HCl (Zofran Inj) 4 mg IVP Q6H PRN PRN Reason: Nausea/Vomiting Last Admin: 11/12/16 13:19 Dose: 4 mg Pantoprazole Sodium (Protonix Ec Tab) 40 mg PO DAILY [facility] Last Admin: 11/12/16 09:56 Dose: 40 mg Saccharomyces Boulardii (Florastor) 250 mg PO BID [facility] Last Admin: 11/12/16 17:34 Dose: 250 mg Results - Vital Signs Recent Vital Signs: Last Vital Signs Temp 98.2 F 11/12/16 15:33 Pulse 58 L 11/12/16 15:33 Resp 18 11/12/16 15:33 BP 116/75 11/12/16 15:33 Pulse Ox 100 11/12/16 15:33 - Labs Result Diagrams: 11/12/16 07:09 11/12/16 07:09 Labs: Laboratory Results - last 24 hr 11/12/16 11/12/16 07:09 07:09 WBC 6.9 RBC 3.62 L Hgb 11.1 Hct 32.6 L MCV 90.1 MCH 30.7 MCHC 34.0 RDW 12.8 Plt Count 135 MPV 11.1 Neut % (Auto) 62.4 Lymph % (Auto) 22.0 [place] % (Auto) 11.6 H Eos % (Auto) 3.5 Baso % (Auto) 0.5 Neut # 4.3 Lymph # 1.5 [place] # 0.8 Eos # 0.2 Baso # 0.0 Sodium 135 Potassium 3.7 Chloride 102 Carbon Dioxide 26 Anion Gap 11 BUN 6 L Creatinine 1.0 Est GFR ( Amer) > 60 Est GFR (Non-Af Amer) > 60 Random Glucose 79 Calcium 8.2 L Phosphorus 3.0 Magnesium 1.6 Assessment & Plan - Assessment and Plan (Free Text) Assessment: imp: abd pain uti urolithiasis Plan: hydration analgesic antibiotic Discussed w pt, nursing staff, and attending. Review xray thank you. YS - Date & Time Date: 11/12/16 Time: 11:00
[2016-11-13 01:40] VITALS: RESP 20
[2016-11-13 08:09] LABS: BASO % 0.5 % (0.0-2.0); EOS # 0.3 K/uL (0.0-0.7); EOS % 4.6 % (0.0-4.0); HEMATOCRIT 33.2 % (34.0-47.0); LYMPH # 1.5 K/uL (1.0-4.3); LYMPH % 21.5 % (20.0-40.0); MEAN CELL VOLUME 90.4 fL (81.0-99.0); MEAN CORPUSCULAR HEMOGLOBIN 30.5 pg (27.0-31.0); MEAN CORPUSCULAR HGB CONC 33.7 g/dL (33.0-37.0); MEAN PLATELET VOLUME 10.8 fL (7.2-11.7); MONO # 0.8 K/uL (0.0-0.8); MONO % 11.2 % (0.0-10.0); WHITE BLOOD COUNT 6.8 K/uL (4.8-10.8)
[2016-11-13 08:24] VITALS: PULSE 60
[2016-11-13 08:33] LABS: BLOOD UREA NITROGEN 7 mg/dL (7-17); CALCIUM 8.7 mg/dl (8.6-10.4); CARBON DIOXIDE 26 mmol/L (22-30); CHLORIDE 105 mmol/L (98-107); GFR AFRICAN-AMERICAN > 60; GLUCOSE,RANDOM 85 mg/dL (65-105); POTASSIUM 4.2 mmol/L (3.6-5.2); SODIUM 140 mmol/L (132-148)
[2016-11-13] MEDS: Pantoprazole 40 mg EC Tab PO SCH (10:53)
[2016-11-13] MEDS: Saccharomyces Boulardi 250 mg Cap PO SCH (10:53)
--- NOTE | 2016-11-13 13:29 | CP.PCM.PN ---
Subjective - Date & Time of Evaluation Date of Evaluation: 11/13/16 Time of Evaluation: 13:15 - Subjective Subjective: Patient was seen and examined at 11/13/16 at 1:15 PM 26 year old female was admitted on 11/11/16 for evaluation of left flank pain, n/ v. On this past Tuesday she had a cystoscopy, pyelogram and left ureteral stent placed due to a 9mm renal stone in the left side done by Dr. Lois Chung. The following day she had a shockwave lithrotripsy at the [facility]. Then on Tuesday morning she developed left flank pain with n/v. She was admitted on 11/11/16 at which time Abdominal X Ray did not show any evidence of stone but did reveal a significant amount of stool. UA appeared to be dirty and left pyelonephritis was suspected. She was started on Ceftriaxone and Zofran. Urine Culture has come back as no growth. She was also given Colace to soften the stool and then 1 dose of Dulcolax leading to bowel movement on 11/12/16 evening and this morning. Her n/v has resolved and she is tolerating her diet. Her flank pain has also resolved and she has been contacted by Urologist Dr. Lois Chung to come to [facility] on morning of 11/15/16 for removal of the Left Ureteral Stent at 9:30 AM. Upon FULL ROS: NO chest pain, NO palpitations, NO SOB/Cough/Wheezing, NO dysphagia/odynophagia, NO abdominal pain, Diarrhea has essentially resolved as patient states that the stools are more well formed, NO black or bloody stools, NO burning pain with urination, NO paresthesias in the extremities, NO new changes in vision, NO new changes in hearing Exam: HEENT: EOMI, PERRLA, NO pharyngeal erythema/exudate, NO cervical/supraclavicular /submandibular lymphadenopathy, Nasal Turbinates are moist/nonerythematous/ nonedematous Cardio: NS1 and NS2, NO M/R/G Respiratory: CTA B/L NO R/R/W GI: BSx4, NT, NO guarding/rebound tenderness, NO HSM, ND, NO guarding/rebound tenderness, NO CVA tenderness Ext: Pulses are strong and equal, Capillary Refill is 2 seconds, NO edema noted Neuro: CN II through XII are grossly intact Assessments Left Pyelonephritis: this was suspected considering the clinical presentation however the Urine Culture is negative and the patient's pain has resolved. In addition to the PO antibiotic Dr. Mark Chung placed her on on Tuesday, she received Ceftriaxone through today therefore she does not need any more antibiotics Constipation: this has resolved The following instructions were explained to patient, resident will include in discharge summary, and a copy will be provided to patient: 1). Please call the [facility] at [phone] for an appointment to take place in the next 7 days. They will be your primary care physicians and help to coordinate your care. 2). Please come to the [facility] Main Lobby by 9 AM on Tuesday11/15/16 as you are scheduled for Left Ureteral Stent removal by Dr. Nicole Chung. Please do not drink or eat anything after midnight on 11/14/16. 3). Please make sure that you are drinking 8 ounces of Sunsweet 100% Prune Juice everyday to help you keep your bowel movements regular. 4). The following prescription was provided to you and you should only take if you have not had a bowel movement in 3 days: Dulcolax 5 mg, 1 tablet by mouth once if no bowel movement in 3 days, Disp: #10 , NO refills 5). DO NOT take the Percocet that you have at home 6). DO NOT take the Antibiotic that you have at home 7). Please take care of yourself Raji Kwong D.O. Objective - Vital Signs/Intake and Output Vital Signs (last 24 hours): Temp Pulse Resp BP Pulse Ox 97.4 F L 60 20 112/53 L 100 11/13/16 07:00 11/13/16 07:00 11/13/16 07:00 11/13/16 07:00 11/13/16 07:00 Intake and Output: 11/13/16 11/13/16 06:59 18:59 Intake Total 2520 Output Total 401 Balance 2119 - Medications Medications: Current Medications Docusate Sodium (Colace) 100 mg PO TID [facility] Last Admin: 11/13/16 10:53 Dose: Not Given Ceftriaxone Sodium 1 gm/ (Sodium Chloride) 100 mls @ 100 mls/hr IVPB DAILY [facility] Last Admin: 11/13/16 10:53 Dose: 100 mls/hr Sodium Chloride (Sodium Chloride 0.9%) 1,000 mls @ 100 mls/hr IV .Q10H [facility] Last Admin: 11/12/16 09:45 Dose: Not Given Ondansetron HCl (Zofran Inj) 4 mg IVP Q6H PRN PRN Reason: Nausea/Vomiting Last Admin: 11/12/16 13:19 Dose: 4 mg Pantoprazole Sodium (Protonix Ec Tab) 40 mg PO DAILY [facility] Last Admin: 11/13/16 10:53 Dose: 40 mg Saccharomyces Boulardii (Florastor) 250 mg PO BID [facility] Last Admin: 11/13/16 10:53 Dose: 250 mg - Labs Labs: 11/13/16 07:56 11/13/16 07:56
[2016-11-13 14:40] VITALS: BP 118/68; TEMP 98; O2SAT 98
--- NOTE | 2016-11-13 21:21 | CP.PCM.DIS ---
Provider - Provider Date of Admission: 11/11/16 11:35 Attending physician: Raji Kwong MD Primary care physician: PMD: Dr. Daniels Consults: Urology: Dr. Lois Chung Time Spent in preparation of Discharge (in minutes): 40 Diagnosis - Discharge Diagnosis (1) Pyelonephritis Status: Resolved (2) UTI (urinary tract infection) Status: Resolved (3) Constipation Status: Resolved Hospital Course - Lab Results Lab Results: Most Recent Lab Values WBC 6.8 K/uL (4.8-10.8) 11/13/16 07:56 RBC 3.67 Mil/uL (3.80-5.20) L 11/13/16 07:56 Hgb 11.2 g/dL (11.0-16.0) 11/13/16 07:56 Hct 33.2 % (34.0-47.0) L 11/13/16 07:56 MCV 90.4 fL (81.0-99.0) 11/13/16 07:56 MCH 30.5 pg (27.0-31.0) 11/13/16 07:56 MCHC 33.7 g/dL (33.0-37.0) 11/13/16 07:56 RDW 13.0 % (11.5-14.5) 11/13/16 07:56 Plt Count 158 K/uL (130-400) 11/13/16 07:56 MPV 10.8 fL (7.2-11.7) 11/13/16 07:56 Neut % (Auto) 62.2 % (50.0-75.0) 11/13/16 07:56 Lymph % (Auto) 21.5 % (20.0-40.0) 11/13/16 07:56 Jerome % (Auto) 11.2 % (0.0-10.0) H 11/13/16 07:56 Eos % (Auto) 4.6 % (0.0-4.0) H 11/13/16 07:56 Baso % (Auto) 0.5 % (0.0-2.0) 11/13/16 07:56 Neut # 4.2 K/uL (1.8-7.0) 11/13/16 07:56 Lymph # 1.5 K/uL (1.0-4.3) 11/13/16 07:56 Jerome # 0.8 K/uL (0.0-0.8) 11/13/16 07:56 Eos # 0.3 K/uL (0.0-0.7) 11/13/16 07:56 Baso # 0.0 K/uL (0.0-0.2) 11/13/16 07:56 Sodium 140 mmol/L (132-148) 11/13/16 07:56 Potassium 4.2 mmol/L (3.6-5.2) 11/13/16 07:56 Chloride 105 mmol/L (98-107) 11/13/16 07:56 Carbon Dioxide 26 mmol/L (22-30) 11/13/16 07:56 Anion Gap 13 (10-20) 11/13/16 07:56 BUN 7 mg/dL (7-17) 11/13/16 07:56 Creatinine 0.9 MG/DL (0.7-1.2) 11/13/16 07:56 Est GFR ( Amer) > 60 11/13/16 07:56 Est GFR (Non-Af Amer) > 60 11/13/16 07:56 Random Glucose 85 mg/dL (65-105) 11/13/16 07:56 Calcium 8.7 mg/dl (8.6-10.4) 11/13/16 07:56 Phosphorus 3.0 mg/dL (2.5-4.5) 11/12/16 07:09 Magnesium 1.6 mg/dL (1.6-2.3) 11/12/16 07:09 Total Bilirubin 0.8 mg/dL (0.2-1.3) 11/11/16 10:37 AST 22 U/L (14-36) 11/11/16 10:37 ALT 23 U/L (9-52) 11/11/16 10:37 Alkaline Phosphatase 60 U/L (38-126) 11/11/16 10:37 Total Protein 7.3 g/dL (6.3-8.3) 11/11/16 10:37 Albumin 4.1 g/dL (3.5-5.0) 11/11/16 10:37 Globulin 3.2 gm/dL (2.2-3.9) 11/11/16 10:37 Albumin/Globulin Ratio 1.3 (1.0-2.1) 11/11/16 10:37 Urine Color [place] (YELLOW) 11/11/16 10:48 Urine Clarity Hazy (Clear) 11/11/16 10:48 Urine pH 5.0 (5.0-8.0) 11/11/16 10:48 Ur Specific [place] 1.024 (1.003-1.030) 11/11/16 10:48 Urine Protein 2+ mg/dL (NEGATIVE) H 11/11/16 10:48 Urine Glucose (UA) Normal mg/dL (Normal) 11/11/16 10:48 Urine Ketones 2+ mg/dL (NEGATIVE) H 11/11/16 10:48 Urine Blood 3+ (NEGATIVE) H 11/11/16 10:48 Urine Nitrate Negative (NEGATIVE) 11/11/16 10:48 Urine Bilirubin Negative (NEGATIVE) 11/11/16 10:48 Urine Urobilinogen Normal mg/dL (0.2-1.0) 11/11/16 10:48 Ur Leukocyte Esterase 3+ Ritika/uL (Negative) H 11/11/16 10:48 Urine WBC (Auto) 588 /hpf (0-5) H 11/11/16 10:48 Urine RBC (Auto) 916 /hpf (0-3) H 11/11/16 10:48 Ur Squamous Epith Cells 10 /hpf (0-5) H 11/11/16 10:48 Urine Bacteria Rare (<OCC) 11/11/16 10:48 - Hospital Course Hospital Course: 26 year old female was admitted on 11/11/16 for evaluation of left flank pain, nausea and vomiting. On this past Tuesday she had a cystoscopy, pyelogram and left ureteral stent placed due to a 9mm renal stone in the left side done by Dr. Nicole Chung. The following day she had a shockwave lithrotripsy at the [facility]. Then on Tuesday morning she developed left flank pain with nausea, vomiting and a fever of 100.3. Patient contacted Dr. Mays whom recommended patient to go to [facility] ED for further evalutions. She was admitted on 11/11/16 at which time Abdominal X Ray did not show any evidence of stone but did reveal a significant amount of stool. UA appeared to be dirty and left pyelonephritis was suspected. She was started on Ceftriaxone and Zofran. Urine Culture has come back as no growth. She was also given Colace to soften the stool and then 1 dose of Dulcolax leading to bowel movement on 11/12/16 evening and this morning (11/13/16). Her nausea and vomiting has resolved and she is tolerating her diet. Her flank pain has also resolved and she has been contacted by Urologist Dr. Lois Chung to come to [facility] on morning of for removal of the Left Ureteral Stent at 9:30 AM. Above is a brief summary of the patient's hospital course throughout this admission. Please see medical record for full report. Upon discharge, patient was provided with the following instruction: 1). Please call the [facility] at [phone] for an appointment to take place in the next 7 days. They will be your primary care physicians and help to coordinate your care. 2). Please come to the [facility] Main Lobby by 9 AM on Tuesday11/15/16 as you are scheduled for Left Ureteral Stent removal by Dr. Nicole Chung. Please do not drink or eat anything after midnight on 11/14/16. 3). Please make sure that you are drinking 8 ounces of Sunsweet 100% Prune Juice everyday to help you keep your bowel movements regular. 4). The following prescription was provided to you and you should only take if you have not had a bowel movement in 3 days: Dulcolax 5 mg, 1 tablet by mouth once if no bowel movement in 3 days, Disp: #10 , NO refills 5). DO NOT take the Percocet that you have at home 6). DO NOT take the Antibiotic that you have at home 7). Please take care of yourself Plan was discussed in detail with the patient, who accepts and agrees. - Date & Time of H&P Date of H&P: 11/13/16 Time of H&P: 13:15 Discharge Exam - Head Exam Head Exam: ATRAUMATIC, NORMAL INSPECTION, NORMOCEPHALIC - Eye Exam Eye Exam: EOMI, Normal appearance - ENT Exam ENT Exam: Normal Exam - Neck Exam Neck exam: Normal Inspection - Respiratory Exam Respiratory Exam: Clear to PA & Lateral, NORMAL BREATHING PATTERN, UNREMARKABLE. absent: Respiratory Distress - Cardiovascular Exam Cardiovascular Exam: REGULAR RHYTHM, +S1, +S2 - GI/Abdominal Exam GI & Abdominal Exam: Normal Bowel Sounds, Soft - Extremities Exam Extremities exam: normal capillary refill, pedal pulses present - Back Exam Back exam: NORMAL INSPECTION. absent: CVA tenderness (L), CVA tenderness (R) - Neurological Exam Neurological exam: Alert, Oriented x3 - Psychiatric Exam Psychiatric exam: Normal Affect, Normal Mood - Skin Skin Exam: Dry, Intact, Normal Color, Warm Discharge Plan - Discharge Medications Prescriptions: Bisacodyl [Ducolax] 5 mg PO ONCE PRN #10 ect PRN Reason: Constipation - Follow Up Plan Condition: FAIR Disposition: HOME/ ROUTINE Instructions: Laxative, Stimulant (By mouth), Bisacodyl (By mouth), Constipation (DC), Urinary Tract Infection in Women (DC), Acute Pyelonephritis ( DC), Ureteral Stent Placement (DC) Additional Instructions: Prescription for Dulcolax placed in chart. Please give patient a copy of the following instructions. 1). Please call the [facility] at [phone] for an appointment to take place in the next 7 days. They will be your primary care physicians and help to coordinate your care. 2). Please come to the [facility] Main Lobby by 9 AM on Tuesday11/15/16 as you are scheduled for Left Ureteral Stent removal by Dr. Nicole Chung. Please do not drink or eat anything after midnight on 11/14/16. 3). Please make sure that you are drinking 8 ounces of Sunsweet 100% Prune Juice everyday to help you keep your bowel movements regular. 4). The following prescription was provided to you and you should only take if you have not had a bowel movement in 3 days: Dulcolax 5 mg, 1 tablet by mouth once if no bowel movement in 3 days, Disp: #10 , NO refills 5). DO NOT take the Percocet that you have at home 6). DO NOT take the Antibiotic that you have at home 7). Please take care of yourself
--- NOTE | 2016-11-15 05:22 | CON ---
DATE: 11/13/2016 CONSULTATION REQUESTED BY: Raji Kwong DO REASON FOR CONSULTATION: Urinary tract infection. Fever. History of urolithiasis. HISTORY OF PRESENT ILLNESS: The patient is a 26-year-old female, admitted with abdominal pain. The patient's did help. The patient presented with a renal colic. She reports that she has been having pain for the past several years and was told she had gastritis in past. The patient presented to the emergency room last week. On Tuesday, the patient had cystoscopy and stent insertion. The patient was found to have an obstructive left upper ureteral stone. The patient had cystoscopy and stent insertion performed on 11/08. On 11/09, the patient underwent extracorporeal shock-wave lithotripsy. The patient has had abdominal pain and flank pain. She had hematuria which has been intermittent since then. The patient has had no bowel movements, he reports for the past approximately 6 days. The patient voids. The patient also developed a fever to 100.3. The patient is now admitted for evaluation and therapy. The patient has been treated with IV fluids as well as antibiotic therapy. She reports that she is feeling much better today. SOCIAL HISTORY: The patient lives with her and her 3 children. 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 PHYSICAL EXAMINATION GENERAL: The patient is a well-developed, well-nourished young adult female. ABDOMEN: Soft, nontender, nondistended. BACK: No CVA tenderness. LABORATORY DATA: Reviewed as well. KUB reviewed as well. KUB revealed a ureteral stent in place with residual GI contrast. The stone is no longer evident adjacent to the stent. IMPRESSION: The patient is much better since admission and since the progress most of this week, regarding her abdominal pain. Urolithiasis now improved. RECOMMENDATION AND PLAN: Hydration. Analgesics. Strained urine. Antibiotic therapy. Urine culture pending. Further therapy to follow according to the patient's clinical course the patient's clinical course. Nicole Chung MD
== END 2016-11-13 14:54 | disposition home or self-care (01) ==
LOC: C.ER 10:09 → INTOOBSV 11:35 → C.9E 11:35 → C.6T 14:57
PROVIDERS: ADMIT Family Medicine; ATTEND Family Medicine
DX: N10 Acute pyelonephritis (principal); J45.909 Unspecified asthma, uncomplicated; Z87.442 Personal history of urinary calculi; K59.00 Constipation, unspecified; Z87.891 Personal history of nicotine dependence; N20.2 Calculus of kidney with calculus of ureter; N12 Tubulo-interstitial nephritis, not specified as acute or chronic
CPT/HCPCS: 36415; 74000; 76770; 80048; 80053; 81001; 83735; 84100; 85025; 87040; 87086; 96365; 96375; 99285; G0378; J0696; J1170; J1885; J2405; J7040

== ENCOUNTER 2016-11-15 09:00 | Day surgery (SDC) | payer OTHER ==
[2016-11-15] MEDS ORDERED: Midazolam 2 MG/2 ML VIAL ONE (10:23)
[2016-11-15] MEDS ORDERED: Propofol 10 mg/ml Inj (20 ML) ONE (10:24)
[2016-11-15] MEDS ORDERED: Lactated Ringer's 1,000 ML IV ONE (10:30)
[2016-11-15] MEDS ORDERED: Lidocaine 2% Jelly (Uro-Jet) ONE (10:34)
[2016-11-15] MEDS ORDERED: cefTRIAXone IV 1 gm in Dextros 50 ML IVPB ONE (10:34)
[2016-11-15 11:58] VITALS: O2SAT 100
[2016-11-15 12:34] VITALS: BP 96/83; PULSE 50; RESP 18; TEMP 97
--- NOTE | 2016-11-15 16:18 | RAD ---
HISTORY: LT. UROLITHIASIS COMPARISON: Comparison made with plain film radiograph abdomen 11/11/[address] scan abdomen pelvis dated 11/06/2016. . FINDINGS: BOWEL: Large amount of stool seen throughout the ascending colon consistent with mild fecal retention/constipation. BONES: Normal. OTHER FINDINGS: Re- demonstrated is in situ left ureteral stent. IMPRESSION: In situ left ureteral stent. Large amount of stool within the at ascending colon consistent with mild fecal retention/constipation
--- NOTE | 2016-11-16 21:51 | OP ---
PROCEDURE DATE: 11/15/2016 PREOPERATIVE DIAGNOSIS: Urolithiasis. POSTOPERATIVE DIAGNOSIS: Urolithiasis. PROCEDURE: Cystoscopy. Removal of left ureteral stent. Removal bladder stones. SURGEON: Nicole Chung MD DESCRIPTION OF PROCEDURE: The patient was placed in lithotomy position. Sedation was provided by an anesthesiologist. The patient received perioperative antibiotics. The chemistry account manager from the abdomen was performed. The stent was noted to be in proper position. There were no renal or upper ureteral stones. There were small stone fragments noted along the course of the distal ureter and the distal ureteral stent. A 22-[place] cystoscope sheath was introduced with obturator, urethra and bladder were inspected. Procedure was performed by the video endoscopic control. The ureteral stent was identified and grasped with grasping forceps. The stent was removed intact. The ureteral orifice was retracted. There was mild periureteral edema. There were 2 small stones in the bladder which we irrigated free. The bladder was drained, cystoscope sheath was removed. The patient tolerated the procedure without complication. Nicole Chung MD
== END 2016-11-15 12:36 | disposition home or self-care (01) ==
LOC: C.SDS 09:00
PROVIDERS: ATTEND Urology
DX: N20.1 Calculus of ureter (principal); K59.00 Constipation, unspecified
CPT/HCPCS: 52310; 74000; 88300; J0696; J7120

== ENCOUNTER 2017-07-22 14:38 | Emergency (ER) | payer OTHER ==
[2017-07-22 16:03] LABS: SQUAMOUS EPITHIAL < 1 /hpf (0-5); URINE BILIRUBIN NEGATIVE (NEGATIVE); URINE BLOOD NEGATIVE (NEGATIVE); URINE CLARITY Clear (Clear); URINE COLOR Straw (YELLOW); URINE GLUCOSE (UA) NORMAL (Normal); URINE LEUKOCYTE ESTERASE NEG Leu/uL (Negative); URINE PROTEIN NEGATIVE (NEGATIVE); URINE UROBILINOGEN NORMAL mg/dL (0.2-1.0)
--- NOTE | 2017-07-22 17:04 | OBHP ---
Datetime: 07/22/2017 16:28 IP Admit Plan: Observation/Evaluation Admit Comment, IP Provider: 26yo edc 12/12/09 by lmp _ 1st trim us@9wk presents w/ c/o . Pt s tates today she has noticing that everytime she drinks water she has to void and urine appears clear. she is concerned because it was not yellow and that perhaps it is amniotic fluid. she denies gushing of fluid or leakage but that she has felt her panties have been wet. she is concerned becaue of prio r h/o PPROM. denies vag bleeding, crampin, ctxs. no coitus x1mo. is being followed in ob w/serial us for clm pmhx pshx: blackhead removal on back; lithotripsy 2016 nkda medic shx:denies illicit drugs, tobacco or etoh I:h/o ptd x2 no evidence of pprom or threatened ab P: f/u w/ ob dr in 1wk pelvic rest Pelvic Type - PN: Adequate Extremities - PN: Normal Abdomen - PN: Normal Back - PN: Normal Lungs - PN: Normal Heart - PN: Normal Neurologic - PN: Normal HEENT - PN: Normal General - PN: Normal FHR - Baseline A Provider: 164 Membranes, Provider: Intact Contraction Comments Provider: no Comments, ACOG Physical Exam: SSE: no fluid in vault w/ and w/out valsava white d/c nitrazine neg cl/th/high Pool Provider: Negative EGA AdmitDate IP: 19.4 Vital Signs Provider: Reviewed; Within Normal Limits IP Chief Complaint: Suspected ruptured membranes Dilatation, Provider: 0 Effacement, Provider: 0 Station, Provider: -4 Genitourinary Exam: Normal (Annotations: Data stored by CPN on behalf of user)
[2017-07-22 21:20] VITALS: BP 107/55; PULSE 74; TEMP 96.7; O2SAT 99
== END 2017-07-22 17:05 | disposition home or self-care (01) ==
LOC: C.EROB 14:38
DX: O26.892 Other specified pregnancy related conditions, second trimester (principal); Z3A.19 19 weeks gestation of pregnancy